=== PATIENT | male | born 2000 | race Caucasian/White ===

== ENCOUNTER 2024-12-29 06:37 | Emergency (ER) | payer SELFPAY ==
[~2024-12-29] VITALS: Ht 175.3 cm; Wt 72.6 kg
[2024-12-29] MEDS ORDERED: LORAZEPAM 1 MG TABLET ONE (07:38)
[2024-12-29] MEDS: LORAZEPAM 1 MG TABLET PO ONE (07:39)
[2024-12-29 08:04] VITALS: BP 133/80; TEMP 98.6; O2SAT 99
== END 2024-12-29 08:05 | disposition home or self-care (01) ==
LOC: ER 06:49
DX: F10.10 Alcohol abuse, uncomplicated (principal); F17.200 Nicotine dependence, unspecified, uncomplicated; G47.00 Insomnia, unspecified; Y90.9 Presence of alcohol in blood, level not specified